=== PATIENT | male | born 1990 | race Native Hawaiian/Other Pacific Islander ===

== ENCOUNTER 2020-02-20 12:26 | Emergency (ER) | payer SELFPAY ==
[2020-02-20 12:29] VITALS: BP 163/73; PULSE 89; RESP 16; TEMP 36.2; O2SAT 98; BMI 27.3
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
== END 2020-02-20 14:35 | disposition home or self-care (01) ==
PROVIDERS: Emergency Provider Family Medicine
DX: S93.601A Unspecified sprain of right foot, initial encounter (principal); V86.59XA Driver of other special all-terrain or other off-road motor vehicle injured in nontraffic accident, initial encounter
CPT/HCPCS: 12345; 73610; 73630; 99281; 99282

== ENCOUNTER → 2020-11-13 14:31 | Outpatient (BNVA) | payer OTHER, SELFPAY | PROVIDERS: Visit Provider Psychiatry & Neurology Psychiatry | DX: F33.1 Major depressive disorder, recurrent, moderate (principal); F10.20 Alcohol dependence, uncomplicated; F41.1 Generalized anxiety disorder; F17.200 Nicotine dependence, unspecified, uncomplicated | CPT/HCPCS: 80053; 84443; 85025 ==